=== PATIENT | female | born 1940 | race Caucasian/White ===

== ENCOUNTER 2023-07-18 17:11 | Inpatient (IN) | payer MEDICARE, OTHER ==
[2023-07-18] VITALS (12 sets, daily range): BP systolic 81–108; BP diastolic 46–55
[~2023-07-18] VITALS: Ht 160 cm; Wt 68.4 kg
[2023-07-18] MEDS ORDERED: Nitroglycerin 0.4 MG SUBL SL SCH (17:30)
[2023-07-18] MEDS ORDERED: Ondansetron HCl 2 MG / ML 2ML Vial IV ONE (17:30)
[2023-07-18] MEDS ORDERED: Ondansetron HCl 2 MG / ML 2ML Vial IV PRN ×2 (17:35→20:35)
[2023-07-18 17:44] LABS: BASOPHILS ABSOLUTE AUTO 0.06 K/mm3 (0.00-0.23); BASOPHILS PERCENT AUTO 1 % (0-2); EOSINOPHILS ABSOLUTE AUTO 0.13 K/mm3 (0.00-0.68); EOSINOPHILS PERCENT AUTO 1 % (0-6); Hematocrit 40.2 % (33.0-51.0); Hemoglobin 12.5 g/dL (11.5-16.0); IMMATURE GRAN ABSOLUTE AUTO 0.06 K/mm3 (0.00-0.10); IMMATURE GRAN PERCENT AUTO 1 % (0-1); LYMPHOCYTES ABSOLUTE AUTO 1.35 K/mm3 (0.84-5.20); LYMPHOCYTES PERCENT AUTO 10 % (21-46); MONOCYTES ABSOLUTE AUTO 0.15 K/mm3 (0.16-1.47); MONOCYTES PERCENT AUTO 1 % (4-13); Mean Corpuscular HGB 31.5 pg (26.0-34.0); Mean Corpuscular HGB Conc 31.1 g/dL (31.5-36.5); Mean Corpuscular Volume 101 fL (80-100); NEUTROPHILS ABSOLUTE AUTO 11.54 K/mm3 (1.96-9.15); NEUTROPHILS PERCENT AUTO 87 % (41-73); Platelet Count 298 K/mm3 (150-400); RDW Coefficient Variation 15.7 % (11.7-14.2); RDW Standard Deviation 57.6 fL (35.1-46.3); Red Blood Cell Count 3.97 M/mm3 (3.80-5.20); White Blood Cell Count 13.29 K/mm3 (4.00-11.30)
[2023-07-18 17:54] LABS: PCO2 Arterial 44.9 mmHg (35-45); PO2 Arterial 57.1 mmHg (80-100)
[2023-07-18 17:55] LABS: pH Blood Arterial 7.28 (7.35-7.45)
[2023-07-18] MEDS ORDERED: CefTRIAXone Sodium 1,000 MG in NS 50 ML IV ONE (18:15)
[2023-07-18] MEDS ORDERED: FentaNYL Citrate 50 MCG/ML 2 ML Injection IV PRN (18:15)
[2023-07-18] MEDS ORDERED: EUTHYROX50 MCG PO (18:46)
[2023-07-18] MEDS ORDERED: PREG25 (18:46)
[2023-07-18] MEDS ORDERED: METO25 PO (18:47)
[2023-07-18] MEDS ORDERED: BACLOFEN5 M1 PO (18:47)
[2023-07-18] MEDS ORDERED: ATOR10 PO (18:47)
[2023-07-18] MEDS ORDERED: FURO20 PO (18:47)
[2023-07-18] MEDS ORDERED: WARF1 PO (18:48)
[2023-07-18] MEDS ORDERED: Vitamin B-12100 MCG PO (18:48)
[2023-07-18] MEDS ORDERED: VITAMIN D31000 UNI1 PO (18:48)
[2023-07-18 18:56] LABS: Albumin, Blood 2.9 g/dL (3.4-5.0); Albumin/Globulin Ratio 0.6 (0.8-1.8); Bilirubin, Total 1.2 mg/dL (0.1-1.0); Bun/Creatinine Ratio 23.5 (12.0-20.0); Creatinine, Blood 0.85 mg/dL (0.40-1.00); Globulin, Blood 4.7 g/dL (2.2-4.0); Potassium, Blood 3.8 mmol/L (3.5-5.5); Total Protein, Blood 7.6 g/dL (6.4-8.2)
[2023-07-18 19:31] LABS: Influenza A, PCR NEGATIVE (NEGATIVE); Influenza B, PCR NEGATIVE (NEGATIVE); Resp Syncytial Virus, PCR NEGATIVE (NEGATIVE); SARS-Cov-2 (COVID-19) PCR, MMC NEGATIVE (NEGATIVE)
[2023-07-18] MEDS ORDERED: Acetaminophen 650 MG Supp PR ONE (19:40)
[2023-07-18] MEDS ORDERED: NS 1,000 ML IV SCH (20:30)
[2023-07-18] MEDS ORDERED: Albuterol 2.5 MG/3 ML VIAL INH PRN (20:40)
[2023-07-18] MEDS ORDERED: FLU VACC QS2023-24(6MOS UP)/PF 60 MCG/0.5 ML SYRINGE IM ONE (20:40)
[2023-07-18] MEDS ORDERED: Ketorolac Tromethamine 15mg Vial IV PRN (20:50)
[2023-07-18] MEDS ORDERED: Metoprolol Tartrate 1 MG/ML 5 ML VIAL IV PRN (20:55)
[2023-07-18] MEDS ORDERED: Vancomycin HCL 1,250 MG in NS 250 ML IV ONE (20:55)
[2023-07-18] MEDS ORDERED: NS 1,000 ML IV ONE ×3 (20:58→23:15)
[2023-07-18] MEDS ORDERED: Piperacillin/Tazobactam Sod 3.375 GM in NS 50 ML IV SCH (21:00)
[2023-07-18] MEDS ORDERED: Azithromycin 500 MG in NS 250 ML IV SCH (21:00)
[2023-07-18] MEDS ORDERED: Metoclopramide HCl 5MG / ML 2ML Vial IV ONE (21:00)
[2023-07-18] MEDS ORDERED: Ampicillin Sod/Sulbactam Sod 3 GM in NS 100 ML IV SCH (21:00)
[2023-07-18] MEDS ORDERED: Albuterol 2.5 MG/3 ML VIAL INH ONE (21:00)
[2023-07-18 21:04] LABS: Base Excess Venous -3.7 mmol/L; Bicarbonate Venous 21.9 mmol/L (24.0-30.0); PCO2 Venous 34.3 mmHg (38-42)
[2023-07-18 21:10] LABS: International Normalized Ratio 1.06; Prothrombin Time Results 11.1 Sec (9.7-11.5)
--- NOTE | 2023-07-18 21:10 | NUR ---
ADMIT ASSESSMENT PT ADMITTED TO ICU 5 VIA ER. ARRIVED VIA GURNEY. PT AWAKE A&O, CHIGNIK LAGOON. TRANSFERED TO BED BY STAFF WITH SLIDER SHEET. PT ANSWERING QUESTIONS APPROP. DENIES PAIN AT THIS TIME. PT VERY SLEEPY AND HAS TO BE AWAKEN FREQUENTLY DURING ASSESSMENT. LUNGS COARSE ON AIRVO AT 60 LITERS 93%. NONPRODUCTIVE COUGH NOTED. HEART RATE REGULAR IN THE 70'S. BP STABLE. NO EDEMA. SKIN PALE AND DRY. BRUISING TO LEFT FOREHEAD PT STATES,"THAT IS FROM RESTING MY HEAD ON MY WALKER". SCAB TO LEFT FOREARM 1X1, VAN OWNER OPERATOR. SITE NO REDNESS OR BLEEDING. BRUISING TO RLQ ABD. DRSG NOTED TO LEFT HIP. PT STATES,"I BROKE MY HIP SEVERAL WEEKS AGO" PT HAVING DIFFICULTY MOVING LEFT LEG. BT+ ABD SOFT AND NONTENDER. DENIES N/V AT THIS TIME. IV 20G TO LEFT FOREARM, SALINE LOCKED SITE CLEAR. IV 20 G TO RIGHT AC SALINE LOCKED, SITE CLEAR. IV 20G TO RIGHT FOREARM, NS BOLUS INFUSING. SITE CLEAR. ATTENDS CD&I.
--- NOTE | 2023-07-18 23:29 | NUR ---
CRITICAL LA CALLED TO [facility]Y HEBERT 1 LITER BOLUS STARTED. CRITICAL TROPONIN CALLED.
[2023-07-19] VITALS (44 sets, daily range): BP systolic 89–122; BP diastolic 44–81
[2023-07-19 03:31] LABS: Hemoglobin 9.1 g/dL (11.5-16.0); Mean Corpuscular HGB 32.4 pg (26.0-34.0); Mean Corpuscular HGB Conc 32.5 g/dL (31.5-36.5); Mean Corpuscular Volume 100 fL (80-100); Mean Platelet Volume 10.2 fL (9.1-12.4); Platelet Count 208 K/mm3 (150-400); RDW Coefficient Variation 15.4 % (11.7-14.2); RDW Standard Deviation 55.4 fL (35.1-46.3); Red Blood Cell Count 2.81 M/mm3 (3.80-5.20); White Blood Cell Count 10.15 K/mm3 (4.00-11.30)
[2023-07-19 03:48] LABS: Albumin, Blood 2.2 g/dL (3.4-5.0); Albumin/Globulin Ratio 0.6 (0.8-1.8); Bilirubin, Total 1.3 mg/dL (0.1-1.0); Bun/Creatinine Ratio 19.6 (12.0-20.0); Calcium, Blood 7.8 mg/dL (8.5-10.1); Creatinine, Blood 1.12 mg/dL (0.40-1.00); Globulin, Blood 3.8 g/dL (2.2-4.0); Magnesium, Blood 1.4 mg/dL (1.6-2.4); Potassium, Blood 4.5 mmol/L (3.5-5.5)
[2023-07-19] MEDS ORDERED: Magnesium Sulf 2 GM/Water 50ML 50 ML IV ONE (05:00)
--- NOTE | 2023-07-19 06:15 | NUR ---
SHIFT SUMMARY PT ADMITTED DURING THE NIGHT. PT ABLE TO ANSWER SOME QUESTIONS. VERY ABSENTEE-SHAWNEE. MILLA PAIN DURING THE NIGHT. LUNGS CONT COARSE. DECREASE AIRVO FROM 60 LITER 93% TO 40 LITERS 49% DURING THE NIGHT. HEART RATE IRREGULAR AT TIMES. BP STABLE. PT HAS RECEIVED 2 LITERS NS BOLUS AND NS AT 75 ML/HR. PT INCONT OF URINE. ATTENDS CD&I AT THIS TIME. TURNING PT Q2 HRS. PT RECEIVING 2 GM MAG FOR MAG LEVEL 1.4. ELEVEATED TROPONIN CALLED TO PROVIDE. PT DENIES CHEST PAIN OR PRESSURE. REPORT TO ON COMING NURSE
--- NOTE | 2023-07-19 07:00 | NUR ---
ASSUMPTION OF CARE PT RECEIVING NS 75ML/HR. PT ON AIRVO 40L/49%. SINUS RHYTHM ON MONITOR, MAP >65. ATTENDS IN PLACE. BED IN LOW POSITION, CALL LIGHT WITHIN REACH.
[2023-07-19] MEDS ORDERED: Piperacillin/Tazobactam Sod 3.375 GM in NS 50 ML IV SCH (08:00)
[2023-07-19] MEDS ORDERED: Pantoprazole Sodium 40 MG Injection IV SCH (09:00)
--- NOTE | 2023-07-19 10:00 | NUR ---
UPDATE PT STS SHE HAS BEEN STANDING AND PIVOTING TO WHEELCHAIR AT [facility]. ATTEMPTED TO GET PT OUT OF BED. MODERATE 2 PERSON ASSIST TO GET TO BEDSIDE. WITH GAITBELT AND WALKER, PT ABLE TO STAND FOR 1-2 SECONDS THEN STS "I NEED TO SIT DOWN". ATTEMPTED 3 TIMES WITHOUT CHANGE IN EVENTS. PT ASSISTED BACK INTO BED. PLAN FOR PT TO TRANSFER TO PCU.
[2023-07-19] MEDS ORDERED: MethylPREDNISolone Sod Succ 125 MG Vial IV SCH (11:00)
--- NOTE | 2023-07-19 11:15 | NUR ---
TRANSFER PT TRANSFERRED TO PCU 6 VIA HOSPITAL BED. PT TRANSITIONED TO 15L NRB DURING TRANSPORT. RT ACCOMPANIED STAFF TO NEW ROOM AND PLACED PT BACK ON AIRVO WITH PREVIOUS SETTINGS.
--- NOTE | 2023-07-19 11:42 | NUR ---
ARRIVAL TO UNIT PATIENT TRANSFERRED TO UNIT FROM ICU VIA HOSPITAL BED AT APPROX 1115. PATIENT TRANSFERRED TO BED VIA SLIDER SHEET. PATIENT IS ALERT AND ORIENTED X4, IS FORGETFUL. TELEMETRY SHOWING SINUS 70's. BP STABLE. DENIES CHEST PAIN, PRESSURE. IS ON 40L VIA AIRVO, SATS >90%. TACHYPNEA NOTED. STRONG, PRODUCTIVE COUGH NOTED. IS INCONTINENT, ATTENDS IN PLACE, IS C/D/I. REPOSITIONED IN BED. REPORTING 4/10 PAIN IN L HIP, L ANKLE. MEDICATED PER EMAR WITH IV TORADOL. FAMILY AT BEDSIDE VISITING. CALL LIGHT IN REACH.
[2023-07-19] MEDS ORDERED: ACET325 PO (12:21)
[2023-07-19] MEDS ORDERED: Percocet 5-3251 EACH PO (12:21)
--- NOTE | 2023-07-19 14:50 | NUR ---
Spiritual Care Visit
--- NOTE | 2023-07-19 14:52 | NUR ---
"Spiritual Care | Pt. request Pt. is resting in bed but reponds when I enter the room, Pt. is pleasant. Pt. verbalizes that she had been at [facility] for abotu 4 days before her admission. Listen with empathy and a calming presence. Pt. displays evidence of engagment and trust. Considered matters of janak and belief. Prayed with Pt. Pt. verbalized gratitude for the spiritual care visit and welcomed this molder hand to return."
[2023-07-19] MEDS ORDERED: Acetaminophen 325 MG TABLET PO PRN (16:00)
[2023-07-19] MEDS ORDERED: OxyCODONE 5 mg/Acetamin 325 mg TABLET PO PRN (16:05)
--- NOTE | 2023-07-19 17:17 | NUR ---
SHIFT SUMMARY NO ACUTE CHANGES SINCE PREVIOUS ARRIVAL TO UNIT. FAMILY AT BEDSIDE THROUGHOUT, PATIENT ABLE TO SLEEP SOME THIS AFTERNOON. VS REMAIN STABLE. TELEMETRY SHOWING SINUS 80's. BP STABLE, SBP 100's-110's. MAP >65. REMAINS ON AIRVO 40L 49%, SATS >90%. STRONG, CONGESTED COUGH NOTED. MILD TACHYPNEA AT REST, RR 20-25. HOME PO MEDICATIONS RESTARTED TODAY FOLLOWING SPEECH THERAPY EVALUATION. TOLERATING ORDERED DIET WELL, PO MEDICATIONS GIVEN WITH WATER OR APPLESAUCE. PATIENT DOES REQUIRE SOME FEEDING ASSIST DUE TO PROBLEMS WITH HAND-EYE COORDINATION. MANAGING PAIN PER EMAR AND WITH REGULAR REPOSITIONING, REPORTED RELIEF. PUREWICK PLACED FOR INCONTINENCE MANAGEMENT. VOIDING. NO BM THIS SHIFT. CALL LIGHT IN REACH. WILL REPORT TO ONCOMING RN.
[2023-07-19] MEDS ORDERED: Vancomycin HCL 1,000 MG in NS 100 ML IV SCH (21:00)
[2023-07-19] MEDS ORDERED: Atorvastatin 40 MG Tab PO SCH (21:00)
[2023-07-20 04:03] VITALS: BP 130/72
[2023-07-20 05:05] LABS: Bun/Creatinine Ratio 27.4 (12.0-20.0); Calcium, Blood 8.5 mg/dL (8.5-10.1); Creatinine, Blood 1.24 mg/dL (0.40-1.00); Magnesium, Blood 2.6 mg/dL (1.6-2.4); Potassium, Blood 4.8 mmol/L (3.5-5.5)
--- NOTE | 2023-07-20 05:19 | NUR ---
SHIFT SUMMARY. PT HAS BEEN DOING WELL THROUGHOUT SHIFT THUS FAR, NO ACUTE CHANGES. AOX4, PLEASANT, COOPERATIVE WITH CARE. USES CALL LIGHT APPROPRIATELY AND ABLE TO MAKE NEEDS KNOWN. BEDREST THROUGHOUT SHIFT THUS FAR. PUREWICK HAS BEEN IN PLACE THROUGHOUT SHIFT, ONE INCONTINENT VOID DOCUMENTED DUE TO LEAKING AROUND PUREWICK INTO BRIEF. BRIEF CHANGED, NEW PUREWICK PLACED AND THERE HAS BEEN NO LEAKING SINCE. MINIMAL OUTPUT INTO PUREWICK THIS SHIFT THUS FAR, BLADDER SCAN PERFORMED THIS MORNING, SHOWED <100mls URINE. PT DENIES ANY FEELINGS OF RETENTION OR URGE TO VOID, NO EVIDENCE OF RETENTION. ONLY MINOR PAIN REPORTED SPORADICALLY THROUGHOUT SHIFT, MANAGED VIA REPOSITIONING. PT HAS BEEN SATURATING >92% ON AIRVO THROUGHOUT SHIFT. TOLERATING WELL. BED LOCKED IN LOWEST POSITION. CALL LIGHT LEFT WITHIN REACH. CONTINUING TO MONITOR.
[2023-07-20] MEDS ORDERED: Levothyroxine Sodium 0.075 MG Tab PO SCH (06:00)
[2023-07-20 07:35] VITALS: BP 125/66
[2023-07-20] MEDS ORDERED: Pantoprazole Sodium 20 MG Tab PO SCH (08:00)
[2023-07-20] MEDS ORDERED: Cholecalciferol 1000 Unit Tablet (=25MCG) PO SCH (09:00)
[2023-07-20] MEDS ORDERED: Cyanocobalamin 100 MCG Tab PO SCH (09:00)
[2023-07-20] MEDS ORDERED: Baclofen 10 MG Tab PO SCH (09:00)
[2023-07-20] MEDS ORDERED: Furosemide 20 MG Tab PO SCH (09:00)
[2023-07-20 11:04] VITALS: BP 125/70
[2023-07-20 15:41] VITALS: BP 115/71
[2023-07-20] MEDS ORDERED: Vancomycin HCL 1,250 MG in NS 250 ML IV SCH (16:00)
[2023-07-20] MEDS ORDERED: FERSU300 PO (16:48)
[2023-07-20] MEDS ORDERED: MULVITA PO (16:49)
[2023-07-20] MEDS ORDERED: PANT40 PO (16:49)
[2023-07-20] MEDS ORDERED: CALCIUM 500 MG1 EAC2 PO (16:50)
[2023-07-20] MEDS ORDERED: GABA100 PO (16:53)
[2023-07-20] MEDS ORDERED: ALLEGRA ALLERG180 MG PO (16:53)
[2023-07-20] MEDS ORDERED: ALBU90OI INH (16:55)
--- NOTE | 2023-07-20 18:12 | NUR ---
SHIFT SUMMARY PT IS ALERT AND ORIENTED X 4, SHE HAS BEEN ABLE TO MAKE HER NEEDS KNOWN AND CALLS APPROPRIATELY. OF APPROX. 1200, SPO2 HAS BEEN MAINTAINED >95% VIA 2-3L NC, BP AND HR STABLE. PRODUCTIVE COUGH NOTED AND PRN BREATHING TREATMENTS PROVIDED FOR WHEEZING. SHE IS WHEELCHAIR BOUND AT BASELINE AND WORKED W/ PHYSICAL THERAPIST TO STAND AT EDGE OF BED, PER PHYSICAL THERAPIST RECOMMENDATIONS SHE IS A 2 PERSON ASSIST TO STAND AND IS WEIGHT BEARING TOLERATED ON L FOOT DUE TO L HIP FX. PW DEVICE IS IN PLACE DUE TO INCONTINENCE, OUTPUT IS AGUILAR IN COLOR. NS IS INFUSING PER EMAR ORDERS. SHE REPORTED PAIN IN LEFT HIP, PLEASE SEE EMAR FOR PAIN MANAGEMENT. PRN REPOSITIONING PROVIDED TO MAINTAIN COMFORT AND TO KEEP OFF OF PRESSURE POINTS. CALL LIGHT IS W/IN REACH.
[2023-07-20 19:42] VITALS: BP 134/90
--- NOTE | 2023-07-20 20:44 | NUR ---
PT HAD 10 BEAT RUN OF VTACH AT ABOUT ~2034. PT SLEEPING AT TIME, WOKE TO INQUIRE ABOUT POSSIBLE CHANGES IN CONDITION PT DENIES ANY PALPITATIONS/RACING HR/CHEST PAIN OR PRESSURE/DIZZINESS/LIGHTHEADEDNESS/ETC, CALLED TO NOTIFY HOSPITALIST DR. WOMACK. DIRECTED TO CONTINUE TO MONITOR FOR NOW AND ORDER REPEAT BMP AND MAGNESIUM TO BE DRAWN IN THE MORNING. WILL ENTER ORDERS AND CONTINUE TO MONITOR.
[2023-07-20 23:55] VITALS: BP 148/90
[2023-07-21 04:08] VITALS: BP 145/92
--- NOTE | 2023-07-21 04:24 | NUR ---
SHIFT SUMMARY. PT HAS BEEN DOING WELL THIS SHIFT. AOX4, PLEASANT, COOPERATIVE WITH CARE. Q2 REPOSITIONS, PT TOLERATES WELL. HAS BEEN SATURATING WELL ON 2 L O2 VIA NC THROUGHOUT SHIFT WITH NO DESATURATIONS. PAIN HAS BEEN WELL MANAGED VIA EMAR. TELE ON THROUGHOUT SHIFT. ONE RUN OF VTACH EARLY IN SHIFT, SEE RELATED NOTES FOR DETAILS. PUREWICK HAS BEEN IN PLACE THROUGHOUT SHIFT, MORE URINE OUTPUT IN CANISTER SO FAR THIS MORNING THAN THERE WAS DURING PREVIOUS SHIFT WITH THIS RN. WILL DOCUMENT ALL OUTPUT ACCORDINGLY. PT CALLS APPROPRIATELY, ABLE TO MAKE NEEDS KNOWN. BED LOCKED IN LOWEST POSITION. CALL LIGHT LEFT WITHIN REACH. CONTINUING TO MONITOR.
[2023-07-21 04:50] LABS: Bun/Creatinine Ratio 36.1 (12.0-20.0); Calcium, Blood 8.4 mg/dL (8.5-10.1); Creatinine, Blood 1.08 mg/dL (0.40-1.00); Magnesium, Blood 2.7 mg/dL (1.6-2.4); Potassium, Blood 4.7 mmol/L (3.5-5.5)
[2023-07-21 08:16] VITALS: BP 160/100
[2023-07-21 15:29] VITALS: BP 143/86
[2023-07-21 15:35] LABS: Vancomycin, Random 14.1 ug/mL
[2023-07-21] MEDS ORDERED: Piperacillin/Tazobactam Sod 2.25 GM in NS 50 ML IV SCH (16:00)
[2023-07-21] MEDS ORDERED: Vancomycin HCL 1,000 MG in NS 100 ML IV SCH (16:00)
--- NOTE | 2023-07-21 16:10 | NUR ---
ASSUMED CARE AT 0700. A/A/OX4. ASSIST WITH REPOSITIONING, LEFT LEG WEIGHT AT TOLERATED, WORKED WITH PT. VSS, 2L 02 VIA NC. L/S COARSE/WHEEZY IN UPPER AND DIM/WHEEZE LOWER. STATUS CHANGED TO MEDICAL, REPORT GIVEN TO MEDICAL FLOOR RN TO ASSUME CARE.
--- NOTE | 2023-07-21 17:54 | NUR ---
SHIFT SUMMARY PATIENT TRANSFERED UP FROM PCU. PATIENT ALERT AND INTERACTIVE. AUDIBLE WHEEZES. SPUTUM SENT FOR CULTURE. PATIENT HAD RECENT HIP REPAIR AND WAS AT REHAB PRIOR TO THIS ADMISSION. PATIENT STATES THAT SHE CHOKED ON A PIECE OF CAKE THEN HAD TROUBLES BREATHING AFTER THAT. 2 DRESSINGS OVER L HIP AREA DRY AND INTACT. INCISIONS CLOSED. PATIENT DENIES ANY PAIN. OCCASIONAL COUGH.
[2023-07-21 19:19] VITALS: BP 151/84
[2023-07-21 19:23] LABS: Acinetobacter baumannii DNA Not Detected copy/mL (NOT DETECT); Enterobacter cloacae DNA Not Detected copy/mL (NOT DETECT); Escherichia coli DNA Detected Bin 10^4 copy/mL (NOT DETECT); Haemophilus influenzae DNA Not Detected copy/mL (NOT DETECT); Klebsiella aerogenes DNA Not Detected copy/mL (NOT DETECT); Klebsiella oxytoca DNA Not Detected copy/mL (NOT DETECT)
[2023-07-21 19:42] LABS: Klebsiella pneumoniae DNA Detected Bin 10^4 copy/mL (NOT DETECT); Moraxella catarrhalis DNA Not Detected copy/mL (NOT DETECT); Proteus sp DNA Not Detected copy/mL (NOT DETECT); Pseudomonas aeruginosa DNA Not Detected copy/mL (NOT DETECT); Serratia marcescens DNA Not Detected copy/mL (NOT DETECT); Staphylococcus aureus DNA Detected Bin 10^4 copy/mL (NOT DETECT); Streptococcus agalactiae DNA Detected Bin 10^5 copy/mL (NOT DETECT); Streptococcus pneumoniae DNA Not Detected copy/mL (NOT DETECT); Streptococcus pyogenes DNA Not Detected copy/mL (NOT DETECT)
[2023-07-21 19:43] LABS: Adenovirus DNA Not Detected (NOT DETECT); CTX-M Resistance Gene Not Detected; Chlamydia pneumonia Not Detected (NOT DETECT); Human Coronavirus RNA Not Detected (NOT DETECT); Human Metapneumovirus RNA Not Detected (NOT DETECT); IMP Resistance Gene Not Detected; Influenza virus A RNA Not Detected (NOT DETECT); Influenza virus B RNA Not Detected (NOT DETECT); KPC Resistance Gene Not Detected; Legionella pneumophila Not Detected (NOT DETECT); Mycoplasma pneumoniae Not Detected (NOT DETECT); NDM Resistance Gene Not Detected; OXA-48-like Resistance Gene Not Detected; Parainfluenza virus RNA Not Detected (NOT DETECT); Respiratory syncytial Vir RNA Not Detected (NOT DETECT); Rhinovirus+Enterovirus RNA Not Detected (NOT DETECT); VIM Resistance Gene Not Detected; mecA/C and MREJ Resist Gene Detected
[2023-07-21] MEDS ORDERED: MethylPREDNISolone Sod Succ 125 MG Vial IV SCH (21:00)
[2023-07-22 02:34] VITALS: BP 163/95
--- NOTE | 2023-07-22 04:30 | NUR ---
SHIFT SUMMARY [place] WAS DROWSY AND FULLY ORIENTED ON ASSESSMENT. PT STATES THAT SHE "STILL FEELS FINE" PT ON 2L VIA NC, SATTING IN THE 90'S. SHE DENIES SOB AND C/P/PRESSURE. PT HAS NO NEW COMPLAINTS, NO ACUTE EVENTS TONIGHT, AND NO APPARANT CHANGES TO CONDITION. PT RESTING IN BED AT THIS TIME AT A LOW POSITION WITH THE CALL LIGHT IN REACH.
[2023-07-22 07:34] VITALS: BP 189/102
[2023-07-22 16:14] VITALS: BP 176/104
[2023-07-22] MEDS ORDERED: NS 250 ML IV PRN (17:30)
--- NOTE | 2023-07-22 17:40 | NUR ---
SHIFT SUMMARY PATIENT ALERT AND INTERACTIVE BUT CONFUSED AT TIMES. PATIENT ASKING FOR MEDICATED CREAM THAT SHE THOUGHT WAS AVAILABLE IN HER ROOM AND USED YESTERDAY. WITH REORIENTING PATIENT SHE REMEMBERED THAT IT WAS AT HOME. PATIENT CONTINUES TO HAVE COARSE BREATH SOUNDS WITH AUDIBLE WHEEZES AT TIMES. PATIENT CONTINUES TO HAVE A PRODUCTIVE COUGH. PATIENT STATES THAT SHE IS HAVING TROUBLES EATING SOME OF HER FOODS. PATIENT UNABLE TO CHEW PASTA THE NIGHT BEFORE AND HAVING TROUBLES WITH SOME TEXTURES. PROVIDED EDUCATION RELATED TO ASPIRATION PNEUMONIA. PATIENT CONTINUES TO HAVE TROUBLES ACCEPTING THAT CHOKING ON FOOD CAN CAUSE ASPIRATION PNEUMONIA.
[2023-07-22 19:58] VITALS: BP 173/89
[2023-07-22 22:24] VITALS: BP 159/89
[2023-07-23 02:49] VITALS: BP 177/90
--- NOTE | 2023-07-23 04:31 | NUR ---
SHIFT SUMMARY. PATIENT IS AOX4 WITH SOME CONFUSION AT TIMES. PATIENT IS PLEASANT AND COOPERATIVE WITH CARE. PATIENT CALLS APPROPRIATELY AND IS ABLE TO MAKE NEEDS KNOWN. PAIN ASSESSED-PATIENT DENIES PAIN. PATIENT IS ON 2 L'S VIA NASAL CANNULA AND SATTING >93%. NO ACUTE EVENTS THIS SHIFT. BED IS LOCKED IN THE LOWES POSITION WITH CALL LIGHT IN REACH. NO S/S OF DISTRESS NOTED AT THIS TIME. CARE ONGOING.
[2023-07-23 06:04] VITALS: BP 168/94
[2023-07-23] MEDS ORDERED: Metoprolol Tartrate 1 MG/ML 5 ML VIAL IV PRN (06:30)
[2023-07-23 07:25] VITALS: BP 190/98
[2023-07-23] MEDS ORDERED: Lisinopril 20 MG Tab PO SCH (09:00)
[2023-07-23] MEDS ORDERED: HydrALAZINE HCl 20 MG / ML 1ML Vial IV PRN (13:40)
[2023-07-23] MEDS ORDERED: Baclofen 10 MG Tab PO PRN (13:40)
[2023-07-23 14:37] LABS: International Normalized Ratio 1.14; Prothrombin Time Results 11.9 Sec (9.7-11.5)
[2023-07-23 16:23] VITALS: BP 188/96
[2023-07-23] MEDS ORDERED: Warfarin Sodium 4 MG Tab PO ONE (18:00)
--- NOTE | 2023-07-23 19:25 | NUR ---
no acute changes. pt alert and oriented x4. able to make needs known. productive cough. course lungs throughout. weak. bedrest for now. bed is in the lowest position with call light in reach.
[2023-07-23 19:44] VITALS: BP 171/90
[2023-07-23] MEDS ORDERED: Metoprolol Tartrate 25 MG Tab PO SCH (21:00)
[2023-07-23] MEDS ORDERED: GuaiFENesin 600 MG TabCR PO SCH (21:00)
--- NOTE | 2023-07-24 04:34 | NUR ---
SHIFT SUMMARY PATIENT HAD NO ACUTE CHANGES. AXOX 4 AND BEDREST. TAKES MEDICATION WHOLE X ONE EACH IN APPLESAUCE. PUREWICK IN PLACE. PIV REMAINS INTACT. IV ABX INFUSED. ON 2L O2 NC. DENIES CHEST PAIN, SOB, AND N/V. HYPERTENSIVE AND SCHEDULE PO LOPRESSOR 37.5 MG GIVEN START OF SHIFT. COOPERATIVE WITH CARE. CALL LIGHT IN REACH. BED IN LOWEST POSITION. WILL CONTINUE TO MONITOR UNTIL DAY SHIFT NURSE ASSUMES CARE.
[2023-07-24 05:18] VITALS: BP 169/87
[2023-07-24 05:31] LABS: BASOPHILS ABSOLUTE AUTO 0.01 K/mm3 (0.00-0.23); BASOPHILS PERCENT AUTO 0 % (0-2); EOSINOPHILS PERCENT AUTO 0 % (0-6); Hematocrit 27.7 % (33.0-51.0); Hemoglobin 9.1 g/dL (11.5-16.0); IMMATURE GRAN ABSOLUTE AUTO 0.38 K/mm3 (0.00-0.10); IMMATURE GRAN PERCENT AUTO 4 % (0-1); LYMPHOCYTES ABSOLUTE AUTO 0.61 K/mm3 (0.84-5.20); LYMPHOCYTES PERCENT AUTO 6 % (21-46); MONOCYTES PERCENT AUTO 9 % (4-13); Mean Corpuscular HGB 31.7 pg (26.0-34.0); Mean Corpuscular HGB Conc 32.9 g/dL (31.5-36.5); Mean Corpuscular Volume 97 fL (80-100); Mean Platelet Volume 10.4 fL (9.1-12.4); NEUTROPHILS ABSOLUTE AUTO 7.89 K/mm3 (1.96-9.15); NEUTROPHILS PERCENT AUTO 81 % (41-73); NRBC ABSOLUTE 0.05 K/mm3 (0.00-0.02); NRBC Auto 0.5 /100 WBC (0.0-0.2); Platelet Count 290 K/mm3 (150-400); RDW Coefficient Variation 15.4 % (11.7-14.2); RDW Standard Deviation 53.1 fL (35.1-46.3); Red Blood Cell Count 2.87 M/mm3 (3.80-5.20); White Blood Cell Count 9.79 K/mm3 (4.00-11.30)
[2023-07-24 05:47] LABS: International Normalized Ratio 1.18; Prothrombin Time Results 12.3 Sec (9.7-11.5)
[2023-07-24 06:03] LABS: Bun/Creatinine Ratio 37.3 (12.0-20.0); Calcium, Blood 8.5 mg/dL (8.5-10.1); Creatinine, Blood 0.83 mg/dL (0.40-1.00); Potassium, Blood 4.1 mmol/L (3.5-5.5)
[2023-07-24 08:08] VITALS: BP 171/84
[2023-07-24] MEDS ORDERED: PredniSONE 20 MG Tab PO SCH (09:00)
[2023-07-24] MEDS ORDERED: GUAI600T33 PO (11:22)
[2023-07-24] MEDS ORDERED: LISI20 PO (11:23)
[2023-07-24] MEDS ORDERED: VISBIOME 112.51 EACH PO (11:25)
[2023-07-24] MEDS ORDERED: AMOCLA875 PO (11:25)
[2023-07-24] MEDS ORDERED: WARF4 PO (11:25)
[2023-07-24] MEDS ORDERED: WARF3 PO (11:30)
[2023-07-24 13:17] LABS: Influenza A, PCR NEGATIVE (NEGATIVE); Influenza B, PCR NEGATIVE (NEGATIVE); Resp Syncytial Virus, PCR NEGATIVE (NEGATIVE); SARS-Cov-2 (COVID-19) PCR, MMC NEGATIVE (NEGATIVE)
--- NOTE | 2023-07-24 14:00 | NUR ---
SHIFT SUMMARY AND DISCHARGE
[2023-07-24] MEDS ORDERED: Warfarin Sodium 3 MG Tab PO SCH (18:00)
--- NOTE | 2023-07-24 18:24 | NUR ---
SHIFT SUMMARY AND DISCHARGE PATIENT ALERT AND INTERACTIVE BUT FORGETFUL. L HIP DRESSINGS DRY AND INTACT. INCISION CLOSED. PATIENT CONTINUES TO HAVE PRODUCTIVE MOIST COUGH. PATIENT NOW ON A GROUND MOIST DIET. PATIENT TRANSFERING TO REHAB. PATIENT TRANSFERED VIA GURNEY. REPORT CALLED TO REHAB PRIOR TO DISCHARGE. BELONGINGS SENT WITH PATIENT. IV DC'D PRIOR TO DISCHARGE.
== END 2023-07-24 14:13 | DRG 871 ==
LOC: ER 17:11 → MEDS 20:09 → PCU 20:09 → ICUE 20:09 → PCU 07-19 10:50 → MEDS 07-21 14:05
PROVIDERS: Emergency Medicine; Family Medicine; Internal Medicine; Nurse Practitioner Acute Care; ADMIT Internal Medicine
PROC: 5A09357 Assistance with Respiratory Ventilation, Less than 24 Consecutive Hours, Continuous Positive Airway Pressure (ICD-10-PCS; principal; 2023-07-18)
PROC: 4A033R1 Measurement of Arterial Saturation, Peripheral, Percutaneous Approach (ICD-10-PCS; 2023-07-18)
PROC: 3E03329 Introduction of Other Anti-infective into Peripheral Vein, Percutaneous Approach (ICD-10-PCS; 2023-07-18)
PROC: 3E02340 Introduction of Influenza Vaccine into Muscle, Percutaneous Approach (ICD-10-PCS; 2023-07-18)
PROC: 5A0935A Assistance with Respiratory Ventilation, Less than 24 Consecutive Hours, High Flow/Velocity Cannula (ICD-10-PCS; 2023-07-18)
DX: A41.9 Sepsis, unspecified organism (principal); J15.212 Pneumonia due to Methicillin resistant Staphylococcus aureus; J69.0 Pneumonitis due to inhalation of food and vomit; J96.01 Acute respiratory failure with hypoxia; I24.89 Other forms of acute ischemic heart disease; E87.20 Acidosis, unspecified; I13.0 Hypertensive heart and chronic kidney disease with heart failure and stage 1 through stage 4 chronic kidney disease, or unspecified chronic kidney disease; R65.20 Severe sepsis without septic shock; I48.0 Paroxysmal atrial fibrillation; E03.9 Hypothyroidism, unspecified; E78.5 Hyperlipidemia, unspecified; I25.10 Atherosclerotic heart disease of native coronary artery without angina pectoris; I95.9 Hypotension, unspecified; I07.1 Rheumatic tricuspid insufficiency; I27.20 Pulmonary hypertension, unspecified; I50.9 Heart failure, unspecified; N18.30 Chronic kidney disease, stage 3 unspecified; E83.42 Hypomagnesemia; D63.1 Anemia in chronic kidney disease; Z11.52 Encounter for screening for COVID-19; Z23 Encounter for immunization; Z79.01 Long term (current) use of anticoagulants; Z95.1 Presence of aortocoronary bypass graft; Z85.3 Personal history of malignant neoplasm of breast; Z86.73 Personal history of transient ischemic attack (TIA), and cerebral infarction without residual deficits; Z96.642 Presence of left artificial hip joint; Z95.2 Presence of prosthetic heart valve; Z79.890 Hormone replacement therapy; Z79.899 Other long term (current) drug therapy
CPT/HCPCS: 0241U; 31720; 36415; 36600; 51701; 70450; 71045; 80048; 80053; 80202; 82803; 83605; 83735; 83880; 84145; 84443; 84484; 85025; 85027; 85610; 87040; 87147; 87449; 87633; 92526; 92610; 93005; 93010; 93306; 94640; 94660; 94664; 94760; 94762; 96365-59; 96375-59; 97110; 97112; 97162; 97166; 97530; 99285-25; A9270; C9113; G0008; J0456; J0696; J1885; J2405; J2543; J2765; J2930; J3370; J3475; J7030; J7050; J7512; Q2036